=== PATIENT | male | born 1995 | race Caucasian/White ===

== ENCOUNTER 2021-12-12 05:20 | Day surgery (SDC) | payer BC ==
[~2021-12-12] VITALS: Ht 188 cm; Wt 142.5 kg
[2021-12-12 06:07] VITALS: BP 151/86; PULSE 107; TEMP 97.9
[2021-12-12] MEDS ORDERED: ALLEGRA ALLERG180 MG PO (06:07)
[2021-12-12 08:50] VITALS: BP 122/62; PULSE 84; TEMP 97.9
--- NOTE | 2021-12-12 08:50 | NUR ---
Patient arrived back into [facility]. Mom at bedside. Report recieved from CESILIA Feldman. Patient requesting blueberry muffin and pepsi. Denies pain or nausea.
[2021-12-12 08:56] VITALS: TEMP 97.9
[2021-12-12 09:05] VITALS: BP 132/95; PULSE 85
--- NOTE | 2021-12-12 09:05 | NUR ---
Patient tolerating food and drink well. No complaint of nausea or pain.
[2021-12-12 09:20] VITALS: BP 128/82; PULSE 87
--- NOTE | 2021-12-12 09:20 | NUR ---
Patient continues to do well. No complaint of pain or nausea.
--- NOTE | 2021-12-12 09:30 | NUR ---
Went through discharge intructions with patient and mother. Questions answered. Verbalized understanding to discharge instructions. IV removed with no complications. Patient up to restroom with assistance from mom.
--- NOTE | 2021-12-12 09:45 | NUR ---
Patient voided successfully and got dressed independently. Escorted patient to patient entrance via wheelchair. Mom along side. Patient got into personal vehicle independently and left in the care of him mom.
== END 2021-12-12 09:50 | disposition home or self-care (01) ==
LOC: SDCO 05:20
DX: N30.80 Other cystitis without hematuria (principal); N32.89 Other specified disorders of bladder; R31.0 Gross hematuria; J30.9 Allergic rhinitis, unspecified; E66.01 Morbid (severe) obesity due to excess calories; Z79.899 Other long term (current) drug therapy; Z68.39 Body mass index [BMI] 39.0-39.9, adult
CPT/HCPCS: J0690; J1100; J2405; J2704; J3010; J7120

== ENCOUNTER 2022-01-08 12:29 | Inpatient (IN) | payer BC ==
[~2022-01-08] VITALS: Ht 188 cm; Wt 141.6 kg
[~2022-01-08 12:29] MED LIST: ALLEGRA ALLERG180 MG PO
[2022-01-23] VITALS (10 sets, daily range): BP systolic 106–140; BP diastolic 50–77; PULSE 63–96; TEMP 97.3–97.7
[2022-01-23] MEDS ORDERED: ZYRTEC 10MG10 MG PO (09:44)
[2022-01-23 10:10] LABS: HEMATOCRIT 45.4 % (42.0-52.0); HEMOGLOBIN 15.5 g/dl (13.5-18.0)
--- NOTE | 2022-01-23 10:16 | NUR ---
The patient ambulated back to [facility] independently using a steady gait and appeared to tolerate the activity well. Vital signs obtained. Consent signed. Assessment completed. 18G IV started in left hand with one stick, LR infusing without difficultly. Labs drawn from IV start as ordered. Flagyl 500 mg IV started. Mother brought back to be at his bedside. Call light is within reach. Will continue to monitor the patient.
[2022-01-23 10:28] LABS: ALBUMIN 4.3 gm/dL (3.5-5.0); BILIRUBIN,TOTAL 0.9 mg/dL (0.2-1.2); CALCIUM 9.6 mg/dL (8.4-10.2); CREATININE, serum 0.93 mg/dL (0.72-1.25); TOTAL PROTEIN 8.3 gm/dL (6.2-8.1)
--- NOTE | 2022-01-23 13:45 | NUR ---
The patient was taken via cart to the recovery room to have a nerve block placed pre operatively. The patient's chart was sent with him and his belongings were transferred and will be taken up with him to the 3rd floor post operatively.
--- NOTE | 2022-01-23 22:18 | NUR ---
PATIENTS PRESENTS FROM PACU POST OP ROBOTIC SIGMOIDECTOMY. PATIENT IS ALERT AND ORIENTED. VSS. LUNGS CTA. SIX LAP SITES TOTAL. FOUR WITH BANDAIDS, TWO WITH MET TAPE AND GAUZE. BOWEL SOUNDS PRESENT BUT HYPOACTIVE. WOOD TO DD, SCANT OUTPUT. PATIENT COMPLAINS OF GAS PAIN. MEDICATIONS GIVEN. PATIENT IS TOLERATING WATER AND ICE CHIPS WITH NO COMPLAINTS OF N/V. PATIENT IS RESTING IN BED WITH CALL LIGHT WITHIN REACH.
[2022-01-24] VITALS (8 sets, daily range): BP systolic 110–127; BP diastolic 61–76; PULSE 81–97; TEMP 97.2–98.2
--- NOTE | 2022-01-24 03:06 | NUR ---
PATIENT C/O GAS PAIN. ASSISTED PATIENT TO SIT UP ON THE SIDE OF BED. PATIENT COMPLAINED OF PAIN AT INCISION SITES. PATIENT SAT UP A TOTAL OF 10 MINUTES. ASSISTED PATIENT BACK TO BED AND ON HIS SIDE. PATIENT IS TOLERATING CLEAR LIQUIDS WELL. WILL CONTINUE TO MONITOR.
--- NOTE | 2022-01-24 05:59 | NUR ---
Attempt made to wean off O2-currently on3L/NC with O2 saturations 96-98%. O2 saturations drop to high 88-90 without O2. O2 decreased to 2L/NC with saturations 94-95%.
[2022-01-24 06:57] LABS: BASO % 0.1 % (0.0-2.0); GRAN # 13.7 K/mm3 (1.4-6.5); GRAN % 89.8 % (42.2-75.2); HEMATOCRIT 43.1 % (42.0-52.0); HEMOGLOBIN 14.6 g/dl (13.5-18.0); LYMPH # 0.7 K/mm3 (1.2-3.4); LYMPH % 4.5 % (20.0-51.0); MEAN CELL VOLUME 85 fl (80.0-100.0); MEAN CORPUSCULAR HEMOGLOBIN 29 pg (27-31); MEAN CORPUSCULAR HGB CONC 34 g/dl (33.0-37.0); MEAN PLATELET VOLUME 9.2 fl (7.4-10.4); MONO # 0.8 K/mm3 (0.1-0.6); MONO % 5.3 % (1.7-9.3); PLATELET COUNT 206 K/mm3 (130-400); RED BLOOD COUNT 5.07 M/mm3 (4.20-5.60)
[2022-01-24 07:13] LABS: CALCIUM 9.3 mg/dL (8.4-10.2); CREATININE, serum 0.94 mg/dL (0.72-1.25); POTASSIUM 4.4 mmol/L (3.5-4.5)
--- NOTE | 2022-01-24 09:30 | NUR ---
Pt assessment complete. Pt is laying in bed upon entry, he is A/O x4. His breathing is even and unlabored on 2L O2 via NC. Pt states he does not usually wear O2. Denies SOB. No N/V. Denies passing any gas at this time. Tolerating clear liquids without issues. Pt encouraged to ambulate to help with gas pains which he reports to the right side of the abdomen into the shoulder. Assisted in ambulating. Kpad provided. POC discussed with patient. No further needs. Call light within reach.
--- NOTE | 2022-01-24 09:56 | NUR ---
Social Work student and DEVAN Cope discussed discharge planning with the patient. Patient's emergency contact listed is his mother, Grsi (ph#[phone]). Patient lives alone in [place]. Patient's PCP is Dr. Sevilla, and he retrieves his medications from [facility]. Patient does not utilize any use of durable medical equiptment. Patient is also independent with his ADL's, and does not use any oxygen at home. Patient states he has not filled out a DPOA-HC. Patient is not legally and has no kids. Discharge plan: Home
--- NOTE | 2022-01-24 11:47 | NUR ---
Pt tolerating PO liquids without issues. Steadily ambulating in hallways.
--- NOTE | 2022-01-24 13:48 | NUR ---
First visit from the underwear welter. No needs right now.
--- NOTE | 2022-01-24 19:22 | NUR ---
Pt up ambulating in hallways through the day. Continued to report pain to chest area, Dr. Olsen aware. PRN pain medications administered for lower abdominal incisional pain, sites CDI. Tolerating clears without issues. Reports he has passed gas once today. No further needs at this time.
--- NOTE | 2022-01-24 21:40 | NUR ---
PATIENT ALERT AND ORIENTED. SITTING UP AND HAVING DINNER. PATIENT DENIES SIGNIFICANT PAIN AT THIS TIME. PATIENT COMPLAINS OF GAS PAIN. PATIENT GIVEN PM MEDS. PATIENT HAD PINPOINT DRAINAGE ON LOWER INCISION SITE. PATIENT HAS NOT PASSED GAS AND HAS AMBULATED THROUGHOUT THE DAY. PATIENT IS TOLERATING CLEAR DIET WELL AND IS RESTING IN BED WITH CALL LIGHT NEAR.
[2022-01-25 05:33] VITALS: BP 129/77; PULSE 85; TEMP 97.6
[2022-01-25 06:59] LABS: BASO % 0.3 % (0.0-2.0); EOS # 0.1 K/mm3 (0.0-0.7); EOS % 0.5 % (0.0-4.0); GRAN # 7.4 K/mm3 (1.4-6.5); GRAN % 75.7 % (42.2-75.2); HEMATOCRIT 38.8 % (42.0-52.0); HEMOGLOBIN 13.1 g/dl (13.5-18.0); LYMPH # 1.3 K/mm3 (1.2-3.4); LYMPH % 13.6 % (20.0-51.0); MEAN CELL VOLUME 85 fl (80.0-100.0); MEAN CORPUSCULAR HEMOGLOBIN 29 pg (27-31); MEAN CORPUSCULAR HGB CONC 34 g/dl (33.0-37.0); MEAN PLATELET VOLUME 9.7 fl (7.4-10.4); MONO # 0.9 K/mm3 (0.1-0.6); MONO % 9.5 % (1.7-9.3); PLATELET COUNT 174 K/mm3 (130-400); RED BLOOD COUNT 4.55 M/mm3 (4.20-5.60); REDCELL DISTRIBUTION WIDTH-CV 13.2 % (11.5-14.5)
[2022-01-25 07:15] LABS: CALCIUM 9.3 mg/dL (8.4-10.2); CREATININE, serum 0.83 mg/dL (0.72-1.25); POTASSIUM 3.8 mmol/L (3.5-4.5)
[2022-01-25 08:00] VITALS: BP 117/65; PULSE 91; TEMP 97.5
[2022-01-25] MEDS ORDERED: ROXICODONE 55 MG/TAB PO (10:01)
[2022-01-25] MEDS ORDERED: TYLENOL 500MG500 MG PO (10:02)
[2022-01-25] MEDS ORDERED: AMOXICILLIN 8751 TAB PO (10:02)
--- NOTE | 2022-01-25 10:14 | NUR ---
Patient up at bedside preparing to eat breakfast. Mother at bedside. IV site Lt. hand is w/out redness, swelling. Patient reports abdominal pain w/out nausea or vomiting. PRN pain medication administered. Will continue to monitor
--- NOTE | 2022-01-25 11:55 | NUR ---
Patient has been ambulating the hallways with with mother.
[2022-01-25 11:56] VITALS: BP 130/98; PULSE 98; TEMP 97.9
[2022-01-25 16:00] VITALS: BP 123/77; PULSE 109; TEMP 98.6
[2022-01-25 19:37] VITALS: BP 111/73; PULSE 102; TEMP 98
--- NOTE | 2022-01-25 21:35 | NUR ---
REPORT RECEIVED FROM DAY SHIFT. ASSUMED CARE. PATIENT A&OX3. PATIENT REPORTS PAIN OF 5/10 IN ABDOMEN. PATIENT IS RESTING IN CHAIR AND WILL SLEEP THERE TONIGHT DUE TO DIFFICULTY SLEEPING IN BED. PATIENT DENIES ANY SOB. INCISION SITES X6 WITH PINPOINT DRAINAGE ON LOWER RIGHT SITE. PATIENT TOLERATING ADVANCED DIET WELL. PATIENT RESTING IN CHAIR WITH CALL LIGHT NEAR.
[2022-01-25 23:28] VITALS: BP 101/66; PULSE 86; TEMP 98.5
[2022-01-26 03:26] VITALS: BP 122/70; PULSE 85; TEMP 97.7
[2022-01-26 08:00] VITALS: BP 113/88; PULSE 83; TEMP 98
--- NOTE | 2022-01-26 09:13 | NUR ---
Patient sitting up in chair. He reports having a better night last night, able to rest. He is tolerating his low fiber breakfast, denies nausea. Pain a 5/10. Did give motrin with morning medications. [place] to DD. Abdomen soft. Dressings to abdomen intact. He plans to shower today & hopeful for discharge home today. Will monitor.
--- NOTE | 2022-01-26 10:19 | NUR ---
Patient showering. His mom at bedside. Will monitor.
[2022-01-26 11:34] VITALS: BP 110/48; PULSE 58; TEMP 97.4
--- NOTE | 2022-01-26 12:46 | NUR ---
Patient independently ambulating the halls. Lunch ordered. (well educated on low fiber diet) rounded and discharge orders obtained. All discharge education given to patient and his mother. We reviewed mullins cath cares & leg bag. Patient was able to demonstrate draining his bag independently. He is wearing leg bag and aware he should wear large bag at night. Patient incisions open to air after shower, but wanted dressing to lower transverse incisions to prevent his underwear from rubbing incision. Gauze & tegaderm applied. Patient medication list reviewed with new scripts at pharmacy. Discussed medication safety & side effects with patient as well as last dose taken. Activity restrictions reviewed. Incisions cares & signs & symptoms to call physican reviewed. He is aware of follow up appt next week.
--- NOTE | 2022-01-26 13:51 | NUR ---
lunch finish. patient ambulated out with all belongings, his mom taking him home
== END 2022-01-26 13:52 | disposition home or self-care (01) | DRG 330 ==
LOC: INPTSU 01-23 09:24 → SURG 01-23 09:24
PROVIDERS: Nurse Anesthetist, Certified Registered; Surgery; Urology; ADMIT Surgery
PROC: 0DTN4ZZ Resection of Sigmoid Colon, Percutaneous Endoscopic Approach (ICD-10-PCS; principal; 2022-01-23 12:45)
PROC: 8E0W4CZ Robotic Assisted Procedure of Trunk Region, Percutaneous Endoscopic Approach (ICD-10-PCS; 2022-01-23 12:45)
PROC: 0TJB8ZZ Inspection of Bladder, Via Natural or Artificial Opening Endoscopic (ICD-10-PCS; 2022-01-23 12:45)
DX: K57.20 Diverticulitis of large intestine with perforation and abscess without bleeding (principal); N32.1 Vesicointestinal fistula
CPT/HCPCS: A4314; J0330; J0690; J1100; J1650; J2250; J2405; J2543; J2704; J2795; J3010; J7120